=== PATIENT | female | born 1965 | race African-American/Black ===

== ENCOUNTER 2019-07-08 07:26 | Day surgery (SDC) | payer OTHER ==
[~2019-07-08] VITALS: Ht 165.1 cm; Wt 79.5 kg
[~2019-07-08 07:26] MED LIST: BUTALB-APAP-CA1 EACH PO; CARAFATE1 G PO; ESTRACE2 MG PO; MIRALAX17 GM PO; MYLANTA / MAALO30 ML PO; PEPCID40 MG PO; PERCOCET 10/3251 TA1 PO; PHENERGAN25 MG RC; PROTONIX40 MG PO; TESSALON PERLE100 MG PO; XANAX0.5 MG PO; ZOFRAN ODT4 MG/UDTAB PO
[2019-07-08 07:52] LABS: HEMATOCRIT 39.8 % (36.0-48.0); HEMOGLOBIN 13.4 g/dL (12-16); MCHC 33.7 g/dL (31.0-37.0); MCV 89.2 fL (80.0-100.0); MEAN PLATELET VOLUME 10.2 fL (7.4-10.4); PLATELET COUNT 241 10x3/uL (130-400); RBC 4.46 10x6/uL (4.00-5.40); RDW 13.5 % (11.5-14.5)
[2019-07-08 08:02] LABS: CALC OSMOLALITY 286 mosm/kg (275-300); CALCIUM 8.6 mg/dL (8.5-10.1); CHLORIDE - SERUM 106 mmol/L (98-107); CREATININE - SERUM 0.8 mg/dL (0.6-1.3); GLUCOSE 108 mg/dL (74-106); POTASSIUM - SERUM 3.8 mmol/L (3.5-5.1); SODIUM 143 mmol/L (136-145); UREA NITROGEN 14 mg/dL (7-18); eGFR NON AFRICAN AMERICAN 79 mL/min (90-120)
[2019-07-08 08:27] VITALS: BP 120/70; Ht 165.1 cm; Wt 79.5 kg
[2019-07-08 08:33] LABS: EOSINOPHILS 2 % (0-7); LYMPHOCYTES 58 % (15-50); MONOCYTES 1 % (2-11); NEUTROPHILS 38 % (40-80); PLATELET ESTIMATE NORMAL
--- NOTE | 2019-07-08 10:36 | NUR ---
EGD PROCEDURE FROM [id number]
--- NOTE | 2019-07-08 11:52 | NUR ---
1120 IN BATHROOM GETTING DRESSED. INTRUCTIONS GIVEN TO PT AND FAMILY FROM [facility] IN GI. 1140 IV REMOVED AND PT DISCHARGED HOME
--- NOTE | 2019-07-08 12:11 | NUR ---
MANOMETRY TEST FROM [id number].
--- NOTE | 2019-07-09 10:39 | OP ---
PATIENT NAME: MAHAMED GRACIA MEDICAL RECORD: [id number] :67 LOCATION:[facility] ADMISSION DATE: SURGEON: JH LEARY MD DATE OF OPERATION: 07/08/2019 PREOPERATIVE DIAGNOSIS: Gastroesophageal reflux disease with history of TIF procedure. POSTOPERATIVE DIAGNOSES: Gastroesophageal reflux disease with history of TIF procedure. PROCEDURE: 1. EGD with biopsy. 2. Esophageal manometry catheter placement. SURGEON: Jh Leary MD REPORT OF PROCEDURE: The Olympus endoscope was advanced through the mouth and esophagus. We were able to see that the patient's GE junction was about 34 cm from the teeth. The Z-line appeared to be straight with no signs of any ulcerations. As we passed through, the stomach appeared to be inflamed near the antrum with linear streaks of erythema. We passed through the pylorus into the duodenum and as far as the second portion of the duodenum, everything appeared to be normal with no sign of any ulcerations, masses or lesions. As we pulled back, a biopsy was obtained from the antrum of the stomach. A retroflexed view showed that the patient had had a TIF wrap, which was still intact. I could see 1 clip that was still clearly visible and manipulation of the clip caused a little bleeding, but otherwise no sign of any major inflammatory changes. The remainder of the clips, I could not visualize at this point, as it appeared that the tissues are probably grown over them. We then removed some of the insufflation and pulled the scope back into the third portion of the duodenum and a biopsy was taken at the area just proximal to the GE junction. We removed the scope at this point, and inserted an esophageal manometry catheter. We reinserted the scope and assured that it was present passing through the GE junction into the stomach. At this point, the scope was removed. COMPLICATIONS: None. CONDITION: Stable. ANESTHESIA: TIVA. BLOOD LOSS: Minimal. TRANSINT:[id number] Voice Confirmation ID: [id number] DOCUMENT ID: [id number] JH LEARY MD at 1039 CC: AMPARO SOLORZANO [id number] DICTATION DATE: 07/08/19 1033 GARAGE HELPER: 07/08/19 1406 [facility] 07/08/19 [id number] [place] [address]
== END 2019-07-08 11:40 | disposition home or self-care (01) ==
LOC: D.OPS 07:26
PROVIDERS: ATTEND Surgery
DX: K21.9 Gastro-esophageal reflux disease without esophagitis (principal); K56.609 Unspecified intestinal obstruction, unspecified as to partial versus complete obstruction; C17.1 Malignant neoplasm of jejunum; R11.2 Nausea with vomiting, unspecified

== ENCOUNTER 2020-08-30 14:15 | Outpatient (CLI) | payer OTHER ==
[2019-07-08 08:27] VITALS: BMI 29.1
== END 2020-08-30 23:59 | disposition home or self-care (01) ==
LOC: D.MAMMO 14:15
PROVIDERS: ATTEND Family Medicine
DX: Z12.31 Encounter for screening mammogram for malignant neoplasm of breast (principal)